=== PATIENT | male | born 1955 | race Caucasian/White ===

== ENCOUNTER 2017-03-27 22:10 | Emergency (ER) | payer MEDICAID ==
[~2017-03-27] VITALS: Ht 167.6 cm; Wt 68.0 kg
[2017-03-27 22:25] VITALS: BP 148/100
--- NOTE | 2017-03-27 22:35 | PHYS DOC ---
Adult General HPI HPI Patient is a 61 year old L presents to the emergency department with complaints of right lower extremity wound for 3 years. Patient reports she's been under the care of physicians at [facility] and . He states he was dismissed from his latest [facility] physicians at because he continued to request pain medications and they denied him this request. Patient is very aggressive in his request for narcotics. He states "I am faraway from [facility] and you act just like them". Review of Systems Review of Systems Constitutional: Denies fever or chills [] Eyes: Denies change in visual acuity, redness, or eye pain [] HENT: Denies nasal congestion or sore throat [] Respiratory: Denies cough or shortness of breath [] Cardiovascular: No additional information not addressed in HPI [] GI: Denies abdominal pain, nausea, vomiting, bloody stools or diarrhea [] : Denies dysuria or hematuria [] Musculoskeletal: Denies back pain or joint pain [] Integument: chronic LE wound Neurologic: Denies headache, focal weakness or sensory changes [] Endocrine: Denies polyuria or polydipsia [] All other systems were reviewed and found to be within normal limits, except as documented in this note. Physical Exam Physical Exam Constitutional: Well developed, well nourished, no acute distress, non-toxic appearance. [] Skin: Warm, dry, right lower extremity with a large right decubiti on the anterior tibia, no surrounding erythema. He does have vascular skin changes and he has thickening of the skin. There is no discharge from the wound. EKG EKG [] Radiology/Procedures Radiology/Procedures [] Course & Med Decision Making Course & Med Decision Making Pertinent Labs and Imaging studies reviewed. (See chart for details) []Is very aggressive towards this provider nursing staff. He is demanding hydrocodone 10/325. I advised him he would be given one pain tablet in the emergency department and discharged for follow-up with wound care. Patient then began to threaten that he would not leave the emergency department. I advised him if he did not department discharge police would be summoned. He did leave the emergency department on discharge Dragon Disclaimer Dragon Disclaimer This electronic medical record was generated, in whole or in part, using a voice recognition dictation system. 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
[2017-03-27] MEDS ORDERED: HYDROcodone/APAP 10/325 1 TAB TABLET PO ONE (22:45)
== END 2017-03-27 22:45 | disposition home or self-care (01) ==
LOC: ER 22:10
DX: S81.801A Unspecified open wound, right lower leg, initial encounter (principal); Z76.5 Malingerer [conscious simulation]; X58.XXXA Exposure to other specified factors, initial encounter; Y93.89 Activity, other specified; Y99.8 Other external cause status; Y92.89 Other specified places as the place of occurrence of the external cause
CPT/HCPCS: 99282